=== PATIENT | female | born 1985 | race Caucasian/White ===

== ENCOUNTER 2017-05-23 13:01 | Emergency (ER) | payer MEDICAID, OTHER ==
[2017-05-23] MEDS ORDERED: MECLIZINE 12.5 MG TABLET PO STA (13:28)
[2017-05-23] MEDS ORDERED: MECLIZINE 12.5 MG TABLET PO ONE (13:47)
[2017-05-23 14:12] LABS: BILIRUBIN,URINE NEGATIVE (NEGATIVE); PH,URINE 6.5 PH (5.0-7.5)
[2017-05-23 14:12] LABS: BASOPHILS % (AUTO) 0.5 %; EOSINOPHILS # (AUTO) 0.1 10^3/uL (0.0-0.7); HCT - HEMATOCRIT 38.8 % (37.0-47.0); HGB - HEMOGLOBIN 13.1 g/dL (12.0-16.0); LYMPHOCYTES # (AUTO) 1.6 10^3/uL (1.5-3.5); LYMPHOCYTES % (AUTO) 26.4 %; MEAN CORPUSCULAR HEMOGLOBIN 30.1 pg (27.0-31.0); MEAN CORPUSCULAR HGB CONC 33.8 g/dL (32.0-36.0); MONOCYTES # (AUTO) 0.2 10^3/uL (0.0-1.0); MONOCYTES % (AUTO) 4.1 %; NEUTROPHILS # (AUTO) 4.1 10^3/uL (1.5-6.6); RED BLOOD COUNT 4.36 10^6/uL (4.20-5.40); RED CELL DISTRIBUTION WIDTH 13.4 % (12.0-15.0)
[2017-05-23 14:13] LABS: UA CHARGE (STRIP ONLY) YES; UR CULTURE IF IND NOT INDICATED
[2017-05-23 14:15] LABS: HCG UR QUAL NEGATIVE
[2017-05-23 14:19] LABS: CALCIUM 8.5 mg/dL (8.5-10.3); CREATININE 0.4 mg/dL (0.4-1.0); POTASSIUM 3.9 mmol/L (3.5-5.0)
--- NOTE | 2017-05-23 14:22 | CT Preliminary Report ---
Exam: CT Head W/O IMPRESSION: No acute intracranial CT abnormality. [facility] SITE ID: [id number]
--- NOTE | 2017-05-23 14:24 | CT Report ---
EXAM: CT HEAD EXAM DATE: 05/23/2017 01:52 PM. CLINICAL HISTORY: Dizziness. COMPARISON: None. TECHNIQUE: Multiaxial CT images were obtained from the foramen magnum to the vertex. IV contrast: Non e. Reformats: Coronal. In accordance with CT protocol optimization, one or more of the following dose reduction techniques w ere utilized for this exam: automated exposure control, adjustment of mA and/or KV based on patient s ize, or use of iterative reconstructive technique. FINDINGS: Parenchyma: No intraparenchymal hemorrhage. No evidence of mass, midline shift, or CT findings of inf arction. Toth-white differentiation is distinct. Extraaxial Spaces: Normal for age. No subdural or epidural collections identified. Ventricles: Normal in size and position. Sinuses: Imaged paranasal sinuses, orbits, and mastoids show no significant abnormality. Bones: No evidence of fracture or calvarial defect. Other: None. IMPRESSION: No acute intracranial CT abnormality. [facility] Referring Provider Line: [phone] SITE ID: [id number]
--- NOTE | 2017-05-23 14:31 | ED Physician Documentation ---
History of Present Illness - Stated complaint Stated Complaint: DIZZY,N - Chief complaint Chief Complaint: Neuro - History obtained from History obtained from: Patient - History of Present Illness Timing: Yesterday - Additonal information Additional information: The patient is an otherwise healthy 31-year-old female who presents with dizziness that started yesterday morning and has occurred intermittently since that time. She describes it as a spinning sensation, and has noticed that her heart beats fast. She reports associated nausea, with one episode of vomiting yesterday. Her symptoms are worse with movement. She had a slight headache this morning but not currently. She denies history of similar symptoms in the past. Her symptoms today resolved about 10 minutes prior to arrival. Her last menstrual period was 3 weeks ago. She reports taking melatonin starting 1 week ago. Review of Systems Constitutional: reports: Other (Dizziness). denies: Fever, Fatigue Eyes: denies: Decreased vision, Photophobia Ears: denies: Ear pain, Tinnitus/ringing Nose: denies: Congestion Throat: denies: Sore throat Cardiac: reports: Palpitations (rapid heart rate). denies: Chest pain / pressure Respiratory: denies: Dyspnea, Cough GI: reports: Nausea, Vomiting (Once yesterday.). denies: Abdominal Pain : reports: LMP (3 weeks ago.). denies: Dysuria Skin: denies: Rash Musculoskeletal: denies: Back pain, Extremity pain Neurologic: denies: Focal weakness, Numbness, Headache PD PAST MEDICAL HISTORY - Past Medical History Respiratory: Asthma - Past Surgical History Past Surgical History: Yes - Present Medications Home Medications: Ambulatory Orders Medication Instructions Recorded Confirmed Fluticasone [Flonase] 1 spray JOSE ANGEL DAILY 05/23/17 05/23/17 Loratadine 10 mg PO DAILY 05/23/17 05/23/17 Meclizine [Antivert] 12.5 mg PO Q6H #20 tablet 05/23/17 Norelgestromin/Ethin.estradiol 05/23/17 [Xulane Patch] - Allergies Allergies/Adverse Reactions: Allergies Allergy/AdvReac Type Severity Reaction Status Date / Time nitrofurantoin Allergy Rash Verified 05/23/17 13:32 - Living Situation Living Situation: reports: With spouse/s.o. Living Arrangement: reports: At home - Social History Does the pt smoke?: No Smoking Status: Never smoker Does the pt drink ETOH?: No Does the pt have substance abuse?: No - Immunizations Immunizations are current?: Yes PD ED PE NORMAL - Vitals Vital signs reviewed: Yes (normal) - General General: Alert and oriented X 3, Well developed/nourished - HEENT HEENT: Atraumatic, PERRL, EOMI, Ears normal, Pharynx benign - Neck Neck: Supple, no meningeal sign, No adenopathy, No JVD - Cardiac Cardiac: RRR, No murmur - Respiratory Respiratory: No respiratory distress, Clear bilaterally - Abdomen Abdomen: Soft, Non tender - Back Back: No CVA TTP - Derm Derm: No rash - Extremities Extremities: No edema, No calf tenderness / cord - Neuro Neuro: Alert and oriented X 3, No motor deficit, No sensory deficit, Normal speech Results - Vitals Vitals: Oxygen O2 Source Room air - Labs Labs: Laboratory Tests 05/23/17 05/23/17 05/23/17 13:56 13:56 14:00 WBC 6.0 RBC 4.36 Hgb 13.1 Hct 38.8 MCV 89.0 MCH 30.1 MCHC 33.8 RDW 13.4 Plt Count 324 MPV 8.0 Neut # 4.1 Lymph # 1.6 Kane # 0.2 Eos # 0.1 Baso # 0.0 Absolute Nucleated RBC 0.00 Nucleated RBCs 0.0 Sodium Potassium Chloride Carbon Dioxide Anion Gap BUN Creatinine Estimated GFR (MDRD) Glucose Calcium Urine Color YELLOW Urine Clarity CLEAR Urine pH 6.5 Ur Specific [place] 1.015 1.015 Urine Protein NEGATIVE Urine Glucose (UA) NEGATIVE Urine Ketones NEGATIVE Urine Occult Blood NEGATIVE Urine Nitrite NEGATIVE Urine Bilirubin NEGATIVE Urine Urobilinogen 0.2 (NORMAL) Ur Leukocyte Esterase NEGATIVE Ur Microscopic Review NOT INDICATED Urine Culture Comments NOT INDICATED Urine HCG, Qual NEGATIVE 05/23/17 14:00 WBC RBC Hgb Hct MCV MCH MCHC RDW Plt Count MPV Neut # Lymph # [place] # Eos # Baso # Absolute Nucleated RBC Nucleated RBCs Sodium 138 Potassium 3.9 Chloride 107 Carbon Dioxide 22 Anion Gap 9.0 BUN 7 Creatinine 0.4 Estimated GFR (MDRD) 187 Glucose 94 Calcium 8.5 Urine Color Urine Clarity Urine pH Ur Specific [place] Urine Protein Urine Glucose (UA) Urine Ketones Urine Occult Blood Urine Nitrite Urine Bilirubin Urine Urobilinogen Ur Leukocyte Esterase Ur Microscopic Review Urine Culture Comments Urine HCG, Qual - Rads (name of study) head CT w/o Radiology: Prelim report reviewed, EMP read contemporaneously, See rad report ( No acute intracranial CT abnormality.) PD MEDICAL DECISION MAKING - ED course Complexity details: reviewed results, re-evaluated patient, considered differential, d/w patient ED course: The patient's presentation is significant for vertigo, which is most consistent with peripheral etiology rather than central etiology. Head CT is normal, as are CBC, chemistry panel, and urinalysis. Treatment in the emergency department included administration of meclizine 25 mg orally. Her symptoms improved with this treatment. She is being discharged with prescription for meclizine. I discussed with her symptomatic treatment, outpatient follow-up, as well as potentially worrisome signs or symptoms that should prompt reevaluation in the emergency department. Departure - Departure Disposition: 01 Home, Self Care Clinical Impression: Vertigo Condition: Stable Instructions: ED Vertigo Unspecified Follow-Up: Alessandra North MD [Primary Care Provider] - Prescriptions: Meclizine [Antivert] 12.5 mg PO Q6H #20 tablet Comments: Drink plenty of fluids. You can use Tylenol or ibuprofen if needed for fever or discomfort. You can use meclizine as prescribed if needed for dizziness. Follow up with your primary physician within 2 weeks. Call to schedule an appointment. Return to the emergency department if you develop increasing dizziness, persistent vomiting, or otherwise worsening symptoms. Discharge Date/Time: 05/23/17 15:25
[2017-05-23 15:26] VITALS: BP 118/75
== END 2017-05-23 15:25 | disposition home or self-care (01) ==
LOC: ED 13:01
DX: R42 Dizziness and giddiness (principal)
CPT/HCPCS: 36415; 70450; 80048; 81003; 81025; 85025; 99283; A9270; 81001; 87086